=== PATIENT | female | born 1950 | race Caucasian/White ===

== ENCOUNTER 2017-01-15 06:41 | Day surgery (SDC) | payer BC ==
[2017-01-15] MEDS ORDERED: PROPOFOL 500 MG/50 ML EMU IV ONE (07:24)
[2017-01-15] MEDS ORDERED: LIDOCAINE HCL 1% MPF SOL ONE (07:25)
[2017-01-15 08:48] VITALS: TEMP 98.2
[2017-01-15 09:04] VITALS: BP 132/60; PULSE 53; RESP 18; O2SAT 98
== END 2017-01-15 09:14 | disposition home or self-care (01) ==
LOC: SURG 06:41
PROVIDERS: ATTEND Internal Medicine Gastroenterology
DX: Z12.11 Encounter for screening for malignant neoplasm of colon (principal); Z80.0 Family history of malignant neoplasm of digestive organs; K57.30 Diverticulosis of large intestine without perforation or abscess without bleeding; K64.8 Other hemorrhoids
CPT/HCPCS: 45378; J2001; J2704